=== PATIENT | male | born 1990 | race Two or more races ===

== ENCOUNTER 2019-05-11 19:27 | Emergency (ER) | payer SELFPAY ==
[~2019-05-11] VITALS: Ht 180.3 cm; Wt 172.4 kg
[2019-05-11 21:49] VITALS: BP 145/74
== END 2019-05-11 21:50 | disposition home or self-care (01) ==
LOC: ER 19:27
DX: J03.90 Acute tonsillitis, unspecified (principal); F12.10 Cannabis abuse, uncomplicated